=== PATIENT | female | born 1965 | race Caucasian/White ===

== ENCOUNTER 2020-06-14 04:09 | Inpatient (IN) | payer MEDICAID ==
[~2020-06-14] VITALS: Ht 160 cm; Wt 82.8 kg
[2020-06-14] VITALS (13 sets, daily range): BP systolic 128–175; BP diastolic 68–94
[2020-06-14] MEDS ORDERED: ondansetron/PF 4mg/2ml inj IV ONE (04:25)
[2020-06-14] MEDS ORDERED: morphine 4 MG/ML inj SYRINge IV ONE (04:25)
[2020-06-14] MEDS ORDERED: PROM473S4 PO (04:41)
[2020-06-14] MEDS ORDERED: MECL-159 PO (04:41)
[2020-06-14] MEDS ORDERED: ATOR40TA72 PO (04:41)
[2020-06-14] MEDS ORDERED: [UNRECOGNIZED DRUG - CODE] PO (04:41)
[2020-06-14] MEDS ORDERED: ALBU90AE PO (04:41)
[2020-06-14] MEDS ORDERED: THYR15TA PO (04:41)
[2020-06-14] MEDS ORDERED: PROM12.512 PO (04:41)
[2020-06-14] MEDS ORDERED: ALBU2.5V10 NEB (04:41)
[2020-06-14] MEDS ORDERED: HYDR-3964 PO (04:41)
[2020-06-14] MEDS ORDERED: PANT40TA4 PO (04:41)
[2020-06-14] MEDS ORDERED: ASPI81TA52 PO (04:41)
[2020-06-14] MEDS ORDERED: GLIP5TAB26 PO (04:41)
[2020-06-14] MEDS ORDERED: LORA-660 PO (04:41)
[2020-06-14] MEDS ORDERED: THYR60TA2 PO (04:41)
[2020-06-14] MEDS ORDERED: PARO37.510 PO (04:41)
[2020-06-14] MEDS ORDERED: CYCL-1 PO (04:41)
[2020-06-14] MEDS ORDERED: NAPR-996 PO (04:41)
[2020-06-14] MEDS ORDERED: METO25TA6 PO (04:41)
[2020-06-14] MEDS ORDERED: METF-438 PO (04:41)
[2020-06-14 04:45] LABS: BASOPHILS # (AUTO) 0.2 X10'3 (0-0.2); EOSINOPHILS # (AUTO) 0.2 X10'3 (0-0.9); HEMATOCRIT 40.3 % (35.0-45.0); HEMOGLOBIN 13.4 g/dl (12.0-16.0); MONOCYTES # (AUTO) 0.6 X10'3 (0-0.9)
[2020-06-14 04:46] LABS: BASOPHILS % (AUTO) 1.7 % (0-1); EOSINOPHILS % (AUTO) 1.4 % (0-6); LYMPHOCYTES # (AUTO) 4.2 X10'3 (1.1-4.8); LYMPHOCYTES % (AUTO) 31.5 % (21-51); MEAN CORPUSCULAR HEMOGLOBIN 30.1 PG (27.0-31.0); MEAN CORPUSCULAR HGB CONC 33.2 g/dL (33.0-36.5); MEAN CORPUSCULAR VOLUME 90.6 FL (78-98); MEAN PLATELET VOLUME 9.5 FL (7.4-10.4); MONOCYTES % (AUTO) 4.5 % (2-12); NEUTROPHILS % (AUTO) 60.9 % (42-75); PLATELET COUNT 295 X10'3 (140-440); RED BLOOD COUNT 4.45 X10'6 (4.20-5.60); RED CELL DISTRIBUTION WIDTH 14.1 % (11.5-14.5); WHITE BLOOD COUNT 13.2 X10'3 (4.5-11.0)
[2020-06-14 05:00] LABS: ALANINE AMINOTRANSFERASE 18 U/L (12-78); ALBUMIN 3.6 G/DL (3.4-5.0); ALKALINE PHOSPHATASE 93 IU/L (46-116); ANION GAP 7 (8-16); ASPARTATE AMINO TRANSFERASE 10 U/L (10-37); BILIRUBIN,TOTAL 0.4 MG/DL (0.1-1.0); BLOOD UREA NITROGEN 10 MG/DL (7-18); BUN/CREATININE RATIO 14.5 (6.6-38.0); CHLORIDE 103 MMOL/L (99-107); CREATININE 0.69 MG/DL (0.40-0.90); GLUCOSE 218 MG/DL (70-104); SODIUM 139 MMOL/L (135-145); TOTAL CARBON DIOXIDE 28.7 MMOL/L (24-32); TOTAL PROTEIN 7.1 G/DL (6.4-8.2); eGFR 89 ML/MIN
[2020-06-14] MEDS ORDERED: glucagon, human recombinant 1mg kit SUBCUT PRN (05:15)
[2020-06-14] MEDS ORDERED: normal saline 1000ml 1,000 ML IV SCH (05:15)
[2020-06-14] MEDS ORDERED: potassium Cl 20 mEq SR tablet PO PRN ×2 (05:15)
[2020-06-14] MEDS ORDERED: nitroGLYCERIN 0.4mg SUBLingual tab SL PRN (05:15)
[2020-06-14] MEDS ORDERED: MESSAGE TO PHARMACY PO ONE (05:15)
[2020-06-14] MEDS ORDERED: docusate sod 100mg capsule PO PRN (05:15)
[2020-06-14] MEDS ORDERED: ondansetron/PF 4mg/2ml inj IV PRN (05:15)
[2020-06-14] MEDS ORDERED: ipratropium/albuterol 3ml nebule NEB PRN (05:15)
[2020-06-14] MEDS ORDERED: mag hydrox/Alum hydrox/simeth 30ml oral suspension PO PRN (05:15)
[2020-06-14] MEDS ORDERED: dextrose ORAL solution 15 GM/59 ML bottle PO PRN ×2 (05:15)
[2020-06-14] MEDS ORDERED: magnesium 2GM in 50ml NS 50 ML IV PRN (05:15)
[2020-06-14] MEDS ORDERED: dextrose 50%-water 50ml dispensing syringe IV PRN ×2 (05:15)
[2020-06-14] MEDS ORDERED: metoprolol tartrate 1mg/ml inj IV PRN (05:15)
[2020-06-14] MEDS ORDERED: regadenoson 0.4mg/5ml syringe IV ONE (05:15)
[2020-06-14] MEDS ORDERED: magnesium 4gm in 100ml NS 100 ML IV PRN (05:15)
[2020-06-14] MEDS ORDERED: magnesium Cl slow-release 64mg tablet PO PRN (05:15)
[2020-06-14] MEDS ORDERED: potassium CL 10mEq/100ml bag 100 ML IV PRN ×2 (05:15)
[2020-06-14] MEDS ORDERED: aminophylline 250mg/10ml inj. IV PRN (05:15)
[2020-06-14] MEDS ORDERED: acetaminophen 325mg tablet PO PRN (05:15)
[2020-06-14 05:51] LABS: HEMOGLOBIN A1C 9.2 % (4.5-6.2)
[2020-06-14] MEDS ORDERED: meclizine 12.5mg tablet PO PRN (05:55)
[2020-06-14] MEDS: K and/or MAG REPLACEMENT MC SCH ×2 (08:00→20:00)
[2020-06-14] MEDS ORDERED: THYROID PORK PO SCH (08:00)
[2020-06-14] MEDS ORDERED: heparin, porcine 5000 units/ml vial SQ SCH (08:00)
[2020-06-14] MEDS: PAROXETINE 37.5 MG PO SCH (08:00)
[2020-06-14] MEDS: atorvastatin 20mg tablet PO SCH (09:24)
[2020-06-14] MEDS: aspirin 81mg tablet.DR PO SCH (09:24)
[2020-06-14] MEDS: loratadine 10mg tablet PO SCH (09:25)
[2020-06-14] MEDS: pantoprazole 40mg Tablet.DR PO SCH (09:25)
[2020-06-14] MEDS: cyclobenzaprine 10mg tablet PO SCH ×2 (09:25→20:47)
[2020-06-14] MEDS: proMETHazine 25mg tablet PO SCH (09:26)
[2020-06-14] MEDS: heparin, porcine 5000 units/ml vial SQ SCH ×3 (09:27→23:11)
[2020-06-14] MEDS: metoprolol tartrate 25mg tablet PO SCH (09:32)
--- NOTE | 2020-06-14 12:15 | NUR ---
DM Consult: Pt admit transfer [facility] w/ [facility] per MD. Hx T2DM A1C 9.2, dystonia, and myasthenia gravis. Currently NPO at this time; SUAD d/w RN regarding if [facility] would be beneficial this admit. Pt would benefit from DM ed once stable prior to discharge. Addendum: 06/14/20 at [address] Amended: Links added.
[2020-06-14] MEDS: thyroid, pork 30mg tablet PO SCH (12:29)
[2020-06-14 14:00] LABS: CHOLESTEROL 152 MG/DL (0-200); HDL CHOLESTEROL 38 MG/DL (35-60); LDL CHOLESTEROL 98 MG/DL (50-100); TRIGLYCERIDES 107 MG/DL (20-135)
--- NOTE | 2020-06-14 18:15 | NUR ---
Patient in room MED 309. I have received report from nuria HEALY and had the opportunity to ask questions and assume patient care.
--- NOTE | 2020-06-14 18:30 | NUR ---
Problems reprioritized. Patient report given, questions answered & plan of care reviewed with Karin HEALY.
[2020-06-14] MEDS: insulin Lispro (HumaLOG) vial - multi-dose SQ SCH (18:51)
[2020-06-14] MEDS ORDERED: insulin glargine (Lantus) pen - multi-dose SQ SCH (21:00)
--- NOTE | 2020-06-14 21:25 | NUR ---
PAGER ID: [phone] MESSAGE: [id number] cilfford Cox- requested better pain management-gave scheduled flexeril, asking to continue home med hydrocodone 5/325 TID. pain 810 in back. Thx Karin [phone]
--- NOTE | 2020-06-14 22:49 | NUR ---
HTN/PAIN PAGER ID: [phone] MESSAGE: [id number] RAHATALEXEY-HTN BP 175/90 (108) RIGHT ARM ; 170/94 (119) LEFT ARM. NOTHING PRN FOR HTN. PAIN MANAGEMENT IN LAST PAGE, PLEASE ADDRESS/ADVISE. RIA [id number]
[2020-06-14] MEDS ORDERED: hydrALAZINE 20mg/ml inj. IV PRN (23:00)
[2020-06-14] MEDS ORDERED: HYDROcodone/acetaminophen 5mg/325mg tablet PO PRN (23:00)
[2020-06-15 02:00] VITALS: BP 140/76
--- NOTE | 2020-06-15 06:03 | NUR ---
Problems reprioritized. Patient report given, questions answered & plan of care reviewed with PAT RN.
[2020-06-15 06:30] VITALS: BP 156/78
[2020-06-15 06:59] LABS: ALANINE AMINOTRANSFERASE 16 U/L (12-78); ALBUMIN 3.2 G/DL (3.4-5.0); ALBUMIN/GLOBULIN RATIO 0.9 (1.1-1.5); ALKALINE PHOSPHATASE 81 IU/L (46-116); ANION GAP 6 (8-16); ASPARTATE AMINO TRANSFERASE 11 U/L (10-37); BILIRUBIN,TOTAL 0.6 MG/DL (0.1-1.0); BLOOD UREA NITROGEN 11 MG/DL (7-18); BUN/CREATININE RATIO 16.4 (6.6-38.0); CALCIUM 8.5 MG/DL (8.5-10.1); CHLORIDE 106 MMOL/L (99-107); CHOL/HDL RATIO 4.5 (0.00-4.99); CHOLESTEROL 144 MG/DL (0-200); CREATININE 0.67 MG/DL (0.40-0.90); GLUCOSE 131 MG/DL (70-104); HDL CHOLESTEROL 32 MG/DL (35-60); LDL CHOLESTEROL 94 MG/DL (50-100); MAGNESIUM 2.1 MG/DL (1.5-2.4); POTASSIUM 4.2 MMOL/L (3.5-5.1); SODIUM 142 MMOL/L (135-145); TOTAL CARBON DIOXIDE 30.4 MMOL/L (24-32); TOTAL PROTEIN 6.6 G/DL (6.4-8.2); TRIGLYCERIDES 132 MG/DL (20-135); eGFR > 90 ML/MIN
[2020-06-15 07:00] LABS: BASOPHILS # (AUTO) 0.1 X10'3 (0-0.2); BASOPHILS % (AUTO) 0.9 % (0-1); EOSINOPHILS # (AUTO) 0.5 X10'3 (0-0.9); EOSINOPHILS % (AUTO) 4.7 % (0-6); HEMATOCRIT 39.2 % (35.0-45.0); HEMOGLOBIN 12.9 g/dl (12.0-16.0); LYMPHOCYTES # (AUTO) 4.6 X10'3 (1.1-4.8); LYMPHOCYTES % (AUTO) 42.2 % (21-51); MEAN CORPUSCULAR HEMOGLOBIN 30.2 PG (27.0-31.0); MEAN CORPUSCULAR VOLUME 91.6 FL (78-98); MEAN PLATELET VOLUME 9.6 FL (7.4-10.4); MONOCYTES # (AUTO) 0.6 X10'3 (0-0.9); MONOCYTES % (AUTO) 5.2 % (2-12); NEUTROPHILS # (AUTO) 5.1 X10'3 (1.8-7.7); PLATELET COUNT 270 X10'3 (140-440); RED BLOOD COUNT 4.28 X10'6 (4.20-5.60); RED CELL DISTRIBUTION WIDTH 14.1 % (11.5-14.5); WHITE BLOOD COUNT 10.9 X10'3 (4.5-11.0)
[2020-06-15] MEDS ORDERED: lisinopril 20mg tablet PO SCH (08:00)
[2020-06-15] MEDS: PAROXETINE 37.5 MG PO SCH (08:00)
[2020-06-15] MEDS: proMETHazine 25mg tablet PO SCH (08:17)
[2020-06-15] MEDS: heparin, porcine 5000 units/ml vial SQ SCH (08:17)
[2020-06-15] MEDS: pantoprazole 40mg Tablet.DR PO SCH (08:17)
[2020-06-15] MEDS: cyclobenzaprine 10mg tablet PO SCH (08:17)
[2020-06-15] MEDS: metoprolol tartrate 25mg tablet PO SCH (08:18)
[2020-06-15] MEDS: aspirin 81mg tablet.DR PO SCH (08:19)
[2020-06-15] MEDS: loratadine 10mg tablet PO SCH (08:19)
[2020-06-15] MEDS: atorvastatin 20mg tablet PO SCH (08:19)
[2020-06-15] MEDS: thyroid, pork 30mg tablet PO SCH (08:20)
[2020-06-15] MEDS: insulin Lispro (HumaLOG) vial - multi-dose SQ SCH ×2 (08:36→13:44)
[2020-06-15] MEDS: K and/or MAG REPLACEMENT MC SCH (08:37)
[2020-06-15 11:00] VITALS: BP 135/76
--- NOTE | 2020-06-15 11:05 | NUR ---
F/u (06/15): Pt seen by RD for written/verbal DM ed w/ RD contact information provided. Pt reports has trouble managing carb portions and types of carbs at home. RD thoroughly reviewed types of carbs, portion sizing, nutrition facts labels, protein options, and hydration importance. Pt reports takes meds per Rx and no further questions at this time. RD encouraged pt to contact dietitian's office if further questions/concerns. Addendum: 06/15/20 at [address] Amended: Links added.
[2020-06-15] MEDS ORDERED: LISI-600 PO (11:22)
== END 2020-06-15 14:05 | disposition home or self-care (01) | DRG 198 ==
LOC: ER 04:10 → ED HOLD 05:15 → MED 3N 08:00
PROVIDERS: ADMIT Family Medicine; ATTEND Family Medicine
PROC: 4A02XM4 Measurement of Cardiac Total Activity, External Approach (ICD-10-PCS; principal; 2020-06-14)
PROC: 3E073KZ Introduction of Other Diagnostic Substance into Coronary Artery, Percutaneous Approach (ICD-10-PCS; 2020-06-14)
DX: I20.9 Angina pectoris, unspecified (principal); E11.65 Type 2 diabetes mellitus with hyperglycemia; E78.00 Pure hypercholesterolemia, unspecified; E78.5 Hyperlipidemia, unspecified; G70.00 Myasthenia gravis without (acute) exacerbation; F17.200 Nicotine dependence, unspecified, uncomplicated; I10 Essential (primary) hypertension; H81.03 Meniere's disease, bilateral; E03.9 Hypothyroidism, unspecified; J44.9 Chronic obstructive pulmonary disease, unspecified; Z80.1 Family history of malignant neoplasm of trachea, bronchus and lung; Z80.3 Family history of malignant neoplasm of breast; Z80.52 Family history of malignant neoplasm of bladder; Z80.8 Family history of malignant neoplasm of other organs or systems; Z88.8 Allergy status to other drugs, medicaments and biological substances; Z88.2 Allergy status to sulfonamides; Z79.899 Other long term (current) drug therapy; Z71.6 Tobacco abuse counseling; Z79.890 Hormone replacement therapy
CPT/HCPCS: 36415; 78452; 80053; 80061; 82948; 83036; 83735; 83880; 84443; 84484; 85025; 87081; 93005; 93017; 93306; 94667; 94760; 97116; 97161; 97530; 99285; A9500; G0378; J1644; J1815; J2785; J7030; Q0169